=== PATIENT | male | born 1965 | race African-American/Black ===

== ENCOUNTER 2017-02-15 16:06 | Emergency (ER) | payer OTHER ==
--- NOTE | ~2017-02-15 | CR72 ---
[facility]. [facility] A Service of [facility] & [facility] RADIOLOGY TEXT RESULTS PATIENT: LA AC LOCATION: SED : 65 UNIT #: [id number] AGE: [address]: Burt Murray MD SEX: M ORDER DR: [id number] [address] [address] [id number] E MR#: [id number] Acc #: [id number] NAME: LA AC : 1965 SEX: M STUDY DATE/TIME: 02/15/2017 15:57 UNIT: SED ROOM: STUDY DESCRIPTION: CR Chest Single View Portable Attending Physician: Burt Murray M.D. Ordering Physician: Burt Murray M.D. Primary Care Physician: Melvi Holly M.D. MEDICAL IMAGING REPORT This report is preliminary unless electronic signature is present. EXAM Portable chest. INDICATION Chest pain for 3 days, was worse today. COMPARISON No comparison. FINDINGS A portable view of the chest was obtained. The heart size and vascularity are normal, and the lungs are clear, and the bones are normal. IMPRESSION No active disease. Dictated by... Raúl Arango M.D. THIS IS AN ELECTRONICALLY VERIFIED REPORT Raúl Arango M.D. at 02/15/2017 9:54 PM LINDA/caleb TD: 02/15/2017 20:00 JOB #: [id number] MEDICAL IMAGING REPORT Page 1 of 1
--- NOTE | ~2017-02-15 | EKG ---
PATIENT: LA AC UNIT #: [id number] Ventricular Rate: 70 BPM Atrial Rate: 70 BPM P-R Interval: 168 ms QRS Duration: 88 ms Q-T Interval: 360 ms QTC Calculation(Bezet): 388 ms P [place]: 49 degrees Calculated R [place]: 47 degrees Calculated T [place]: 2 degrees Diagnosis Line: Normal sinus rhythm Diagnosis Line: Normal ECG Baseline wander Diagnosis Line: No previous ECGs available Diagnosis Line: Reconfirmed by MARTÍN VILLA MD ([id number]) on Diagnosis Line: 02/19/2017 9:32:25 AM INTERPRETING MD: DAISY HERNANDEZ
--- NOTE | ~2017-02-15 | EKG ---
PATIENT: LA AC UNIT #: [id number] Ventricular Rate: 70 BPM Atrial Rate: 70 BPM P-R Interval: 168 ms QRS Duration: 88 ms Q-T Interval: 360 ms QTC Calculation(Bezet): 388 ms P [place]: 49 degrees Calculated R [place]: 47 degrees Calculated T [place]: 2 degrees Diagnosis Line: Normal sinus rhythm Diagnosis Line: Normal ECG Diagnosis Line: No previous ECGs available Diagnosis Line: Confirmed by MARTÍN VILLA MD ([id number]) on 02/19/2017 Diagnosis Line: 9:32:06 AM INTERPRETING MD: DAISY HERNANDEZ
[~2017-02-15 16:06] MED LIST: FLEXERIL PO; FLEXERIL10 MG PO; HCTZ PO; LOPRESSOR; MEDROL4 MG/DOSE- PO; NO MEDICATIONS; PEN-VEE K PO; VICODIN 5/500 T1 TAB PO; VOLTAREN50 MG PO
[2017-02-15 16:18] LABS: POC - CKMB 1.6 ng/mL (0.0-7.9); POC - TROPONIN <0.05 ng/mL (<=0.05)
[2017-02-15 16:20] LABS: ALBUMIN SERUM 3.9 g/dL (3.5-5.0); BILIRUBIN, DIRECT 0.1 mg/dL (0.0-0.2); BILIRUBIN,INDIRECT 0.2 mg/dL (0.0-0.9); BILIRUBIN,TOTAL 0.3 mg/dL (0.2-2.0); BUN/CREATININE RATIO 13.84; CREATININE SERUM 1.3 mg/dL (0.6-1.4); GLOM FILT RATE Estimated 73.2 mL/min (>60); PARTIAL THROMBOPLASTIN TIME 26.4 SECONDS (25.6-38.1); POTASSIUM 3.9 mmol/L (3.5-5.1); PROTEIN TOTAL SERUM 7.5 g/dL (6.0-8.3)
[2017-02-15 16:40] LABS: MEAN PLATELET VOLUME 8.2 FL (6.5-11.5)
[2017-02-15 17:05] LABS: BASOPHIL# 0.1 X10e3 (0-0.3); BASOPHIL% 0.6 % (0-2.5); EOSINOPHIL# 0.4 X10e3 (0-0.7); EOSINOPHIL% 4.9 % (0.0-7.0); HEMATOCRIT 43.2 % (38.0-50.0); HEMOGLOBIN 13.5 gm/dL (13.0-16.0); LYMPHOCYTE# 2.5 X10e3 (1.0-3.5); LYMPHOCYTE% 27.5 % (17.0-45.0); MEAN CELL VOLUME 74.2 FL (83-96); MEAN CORPUSCULAR HEMOGLOBIN 23.3 PG (28-34); MEAN CORPUSCULAR HGB CONC 31.4 g/dL (30-36); MONOCYTE# 0.4 X10e3 (0-1.0); MONOCYTE% 4.3 % (3.0-12.0); NEUTROPHIL# 5.7 X10e3 (1.5-7.1); NEUTROPHIL% 62.7 % (40-75); PLATELET COUNT 252 X10e3 (140-420); RED BLOOD COUNT 5.81 X10e (3.90-5.60); RED CELL DISTRIBUTION WIDTH 14.4 % (11.0-15.5)
[2017-02-15 17:06] LABS: DIFF IND NO
== END 2017-02-15 16:53 | disposition home or self-care (01) ==
LOC: SED 16:06
PROVIDERS: Emergency Medicine
DX: S46.912A Strain of unspecified muscle, fascia and tendon at shoulder and upper arm level, left arm, initial encounter (principal); R07.89 Other chest pain; F17.200 Nicotine dependence, unspecified, uncomplicated; I10 Essential (primary) hypertension; X50.9XXA Other and unspecified overexertion or strenuous movements or postures, initial encounter
CPT/HCPCS: 36415; 71010; 80048; 80076; 82553; 84484; 85025; 85610; 85730; 93005; 96374; 99284; J2270

== ENCOUNTER 2017-04-11 16:50 | Observation (INO) | payer OTHER ==
--- NOTE | ~2017-04-11 | CR72 ---
[facility] A Service of [facility] & [facility] RADIOLOGY TEXT RESULTS PATIENT: LA AC LOCATION: [facility] 575-01 : [birth year] UNIT #: [id number] AGE: [address]: Chris Murdock MD SEX: M ORDER DR: [id number] [address] [address] [id number] I MR#: [id number] Acc #: [id number] NAME: LA AC : 1965 SEX: M STUDY DATE/TIME: 04/11/2017 19:26 [facility]: 62556 STUDY DESCRIPTION: CR Chest Single View Portable Attending Physician: Chris Murdock M.D. Ordering Physician: Lizy Skaggs M.D. Primary Care Physician: Melvi Holly M.D. MEDICAL IMAGING REPORT This report is preliminary unless electronic signature is present EXAM Portable chest. INDICATIONS Chest pain for 3 days. COMPARISON 02/15/2017 FINDINGS Low-volume inspiration. No definite acute infiltrate. Heart size stable. Visualized osseous structures are unremarkable. IMPRESSION Low-volume inspiration. No active disease. Dictated by... Jose Causey M.D. THIS IS AN ELECTRONICALLY VERIFIED REPORT Jose Causey M.D. at 04/16/2017 1:32 PM ARS/salma TD: 04/12/2017 10:17 JOB #: [id number] MEDICAL IMAGING REPORT Page 1 of 1 COPY
--- NOTE | ~2017-04-11 | TH ---
Unit #: [id number] #: [id number] Patient: LA AC [id number] [address] [address] [id number] I MR#: [id number] NAME: LA AC : 1965 SEX: M STUDY DATE/TIME: 04/16/2017 UNIT: [facility] ROOM: 575 STUDY DESCRIPTION: Stress nuclear study Attending Physician: Chris Murdock M.D. Primary Care Physician: Melvi Holly M.D. CARDIOLOGY REPORT EXAM Stress nuclear study. FINDINGS Result text under stress test. Please see this report for result text. Dictated by... Froylan Oakes/salma TD: 04/16/2017 13:01 JOB #: [id number] CARDIOLOGY REPORT Page 1 of 1 X Chris Murdock MD CARDIOLOGY REPORT
--- NOTE | ~2017-04-11 | HP ---
Unit #: [id number] #: [id number] Patient: LA AC [id number] [address] [address] [id number] I MR#: [id number] NAME: LA AC ROOM: 575 Age: 51 Sex: M Admission Date: 04/11/2017 : 1965 Attending Physician: Chris Murdock M.D. Primary Care Physician: Melvi Holly M.D. HISTORY AND PHYSICAL CHIEF COMPLAINT Chest pain. 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 He is followed with Dr. Melvi Holly as his primary care provider. He endorses that he has a past medical history of hypertension, hyperlipidemia, diabetes, daily alcohol use, chronic knee pain and reformed tobaccoism. The patient endorses that he had been smoking since the age of 15, approximately about a half pack to one pack of cigarettes per day, but did quit three months ago. He also endorses that he has a family history of coronary artery disease and CVA. The patient presented to the emergency department with complaints of left chest pain at rest. He describes that the pain started in his chest and went to his left shoulder and down his left arm. He described the pain as an intermittent squeezing pain that lasted all day. There was no associated diaphoresis or shortness of air. He denies any trauma or heavy lifting. Yesterday at around 4:30 or 5 pm. The patient presented to the emergency room, where he was treated with nitroglycerin. He state that that has helped his pain. His troponin was found to be less than 0.03 and his EKG was unremarkable. The patient has been admitted for further workup. PAST MEDICAL HISTORY 1. Hypertension. 2. Hyperlipidemia. 3. Diabetes. 4. Daily alcohol use. 5. Chronic knee pain. 6. Reformed tobaccoism. PAST SURGICAL HISTORY Right foot surgery at the age of 10. SOCIAL HISTORY The patient states that he quit smoking cigarettes approximately three months ago. He has been smoking since the age of 15 and smoked approximately half to one pack of cigarettes per day. He does endorse daily alcohol use and occasional marijuana use. He is disabled and lives with his . FAMILY HISTORY Unit #: [id number] #: [id number] Patient: LA AC The patient endorses that his mother and father both had coronary artery disease. ALLERGIES Ibuprofen HOME MEDICATIONS 1. Toprol XL 50 mg p.o. daily. 2. Lisinopril 20 mg p.o. daily. 3. Celebrex 200 mg p.o. daily. 4. Norvasc 10 mg p.o. daily. 5. Lipitor 40 mg p.o. daily. REVIEW OF SYSTEMS A 10-point review of systems has been done and is otherwise negative unless indicated in the history of present illness. PHYSICAL EXAMINATION GENERAL: The patient is awake, alert and currently in no acute distress. VITALS: Temperature 98.9, heart rate 54, respiratory rate 12, blood pressure 133/73 and oxygenating 98%. HEENT: Head is atraumatic and normocephalic. Pupils equal, round and reactive to light. Extraocular movements are intact. No drainage from nares. NECK: Supple. Trachea midline. Normal carotid upstrokes. No thyromegaly or lymphadenopathy is appreciated. CHEST: Lungs are diminished bilaterally. No wheezes, rales or rhonchi. HEART: S1 and S2. Regular rate and rhythm. No murmurs, rubs or gallops appreciated. ABDOMEN: Soft, nontender and nondistended. Bowels sounds are positive in all four quadrants. No hepatosplenomegaly is appreciated. SKIN: Appears to be warm, dry and intact without any unusual rashes or lesions. EXTREMITIES: No clubbing, edema or cyanosis. NEUROLOGIC: The patient is alert and oriented times four. He is pleasant and conversant with no focal deficits. Cranial nerves II through XII appear to be intact. DIAGNOSTIC STUDIES LABORATORY: White blood cell count 9.8, hemoglobin 13.2, hematocrit 44.2, platelets 256, sodium 140, potassium 4, chloride 107, CO2 27, BUN 22, creatinine 1.4, glucose 109. Pugll-wj-ybvi troponin was less than 0.05 and initial troponin was less than 0.03. ASSESSMENT 1. Left anterior chest pain with atypical presentation. 2. Hypertension. 3. Hyperlipidemia. 4. Diabetes. 5. Daily alcohol use. 6. Reformed tobaccoism. PLAN At this time, will trend cardiac enzymes, check TSH and lipid panel. Will put the patient on nitroglycerin paste 1 inch b.i.d. and will order a Lexiscan Cardiolite stress test. Naproxen 375 mg has been ordered daily for 7 days. Unit #: [id number] #: [id number] Patient: LA AC Again, if the patient's stress test is negative, likely he will be discharged. Dictated by Maame Lemons TD: 04/12/2017 12:26 JOB #: [id number] HISTORY AND PHYSICAL Page 1 of 1 X Mindy Ramesh APRN X HISTORY AND PHYSICAL
--- NOTE | ~2017-04-11 | DS ---
Unit #: [id number] #: [id number] Patient: LA AC [id number] [address] [address] [id number] I MR#: [id number] NAME: LA AC ROOM: 575 Age: 51 Sex: M Admission Date: 04/11/2017 : 1965 Discharge Date: 04/12/2017 Attending Physician: Chris Murdock M.D. Primary Care Physician: Melvi Holly M.D. DISCHARGE SUMMARY DISCHARGE DIAGNOSES 1. Left anterior chest pain, atypical. 2. Hypertension. 3. Hyperlipidemia. 4. Diabetes. 5. Reformed tobaccoism. 6. Positive family history of coronary artery disease and cerebrovascular accident. 7. Daily alcohol use. HOSPITAL COURSE The patient is a 51-year-old -[place] male who presented to the hospital with complaints of left anterior chest pain. He described the pain that started in his chest and went down to his left shoulder and down to his arm. He described the pain as intermittent, squeezing that lasted all day. There was no associated diaphoresis or shortness of breath. He denied any trauma to the area. He presented to the emergency department where he was treated with nitroglycerin. He stated that helped his pain. His troponins were negative. His EKG was unremarkable. Patient did undergo a Lexiscan Cardiolite stress test which was normal. I have discussed this case with Dr. Kuhn and he is agreeable for discharge. DISCHARGE FOLLOW UP INSTRUCTIONS 1. The patient will be discharged home. 2. The patient will follow up with primary care provider in one week. 3. Healthy heart diet. 4. Activity as tolerated. 5. The patient is to seek medical attention or return to the ER if signs or symptoms worsen. I have discussed discharge instructions with the patient. DISCHARGE MEDICATIONS 1. Amlodipine 10 mg p.o. daily. 2. Toprol XL 50 mg p.o. daily. 3. Lipitor 40 mg p.o. daily. 4. Lisinopril 20 mg p.o. daily. 5. Naproxen 375 mg p.o. x7 days. 6. Celebrex 200 mg p.o. daily. 7. Pepcid 20 mg p.o. daily. Unit #: [id number] #: [id number] Patient: LA AC Dictated by... Mindy Ramesh A.P.R.N. for Chad Kuhn M.D. AM/gabriele TD: 04/12/2017 14:17 JOB #: [id number] DISCHARGE SUMMARY Page 1 of 1 X Mindy Ramesh APRN X DISCHARGE SUMMARY
--- NOTE | ~2017-04-11 | ST ---
Unit #: [id number] #: [id number] Patient: LA AC [id number] [address] [address] [id number] I MR#: [id number] NAME: LA AC : 1965 SEX: M STUDY DATE/TIME: 04/16/2017 UNIT: [facility] ROOM: 575 STUDY DESCRIPTION: Stress test Attending Physician: Chris Murdock M.D. Primary Care Physician: Melvi Holly M.D. CARDIOLOGY REPORT EXAM Stress nuclear and ECG combined. INDICATIONS Dyspnea and chest pain. SUMMARY Patient received Lexiscan intravenously while at rest as well as technetium 99 Cardiolite, 9.34 and 25.9 mCi at rest and stress, respectively. Appropriate views were obtained. FINDINGS The heart rate increased from 52 up to 72 beats per minute. Blood pressure decreased from 147/101 to 137/95. The rest and stress ECG showed no diagnostic ST shifts, no significant dysrhythmias and no heart block. Perfusion images demonstrated large LV with diaphragmatic attenuation artifact, but otherwise normal perfusion with stress. There is intestinal artifact present at rest and stress. There is apical thinning present at rest. End-diastolic volume is 144 mL with quantitative ejection fraction 46%. Summed stress score is 5. Summed difference score is 5. Changes involve primarily the basal anterior wall. Planar images demonstrate mild patient motion both at rest and stress. There is chest wall attenuation artifact, but otherwise LV size is enlarged. RV size appears mildly enlarged and there is no increased lung uptake. IMPRESSION 1. Stress nuclear study shows no ischemia or infarction. 2. Mildly reduced ejection fraction with enlarged LV as noted above. 3. Lexiscan stress ECG is negative for ischemia. Dictated by... Chris Murdock M.D. KESHAV/salma TD: 04/16/2017 12:52 JOB #: [id number] Unit #: [id number] #: [id number] Patient: LA AC CARDIOLOGY REPORT Page 1 of 1 X Chris Murdock MD CARDIOLOGY REPORT
--- NOTE | ~2017-04-11 | EKG ---
PATIENT: LA AC UNIT #: [id number] Ventricular Rate: 57 BPM Atrial Rate: 57 BPM P-R Interval: 142 ms QRS Duration: 78 ms Q-T Interval: 384 ms QTC Calculation(Bezet): 373 ms P [place]: 28 degrees Calculated R [place]: 17 degrees Calculated T [place]: 10 degrees Diagnosis Line: Sinus bradycardia Diagnosis Line: Otherwise normal ECG Diagnosis Line: When compared with ECG of 15-FEB-2017 15:43, Diagnosis Line: No significant change was found Diagnosis Line: Confirmed by ALFONSO LINN MD ([id number]) on 04/16/2017 Diagnosis Line: 2:37:53 PM INTERPRETING MD: KAVEH HERNANDEZ
--- NOTE | ~2017-04-11 | ST ---
Unit #: [id number] #: [id number] Patient: LA AC [id number] [address] [address] [id number] I MR#: [id number] NAME: LA AC : 1965 SEX: M STUDY DATE/TIME: 04/12/2017 UNIT: [facility] ROOM: 575 STUDY DESCRIPTION: Attending Physician: Chris Murdock M.D. Primary Care Physician: Melvi Holly M.D. CARDIOLOGY REPORT EXAM EKG portion of Lexiscan Cardiolite stress test. REASON FOR EXAMINATION Chest pain. FINDINGS Baseline EKG shows sinus bradycardia with a rate of 53 beats per minute. PROCEDURE A total of 0.4 mg of Lexiscan was injected per protocol followed by Cardiolite. The patient's symptoms were abdominal pain. There were no ST-T wave changes or arrhythmias. The test was stopped due to protocol completion. IMPRESSION 1. Abdominal pain resolved in recovery. 2. No arrhythmias. 3. Please correlate with Cardiolite imaging. Dictated by... Mindy Ramesh A.P.R.N. for Chad Kuhn M.D. AM/gabriele TD: 04/12/2017 13:20 JOB #: [id number] CARDIOLOGY REPORT Page 1 of 1 X Mindy Ramesh APRN CARDIOLOGY REPORT
[2017-04-11 18:58] LABS: POC - CKMB 1.1 ng/mL (0.0-7.9); POC - TROPONIN <0.05 ng/mL (<=0.05)
[2017-04-11 19:04] LABS: BASOPHIL# 0.1 X10e3 (0-0.3); BASOPHIL% 0.5 % (0-2.5); EOSINOPHIL# 0.5 X10e3 (0-0.7); HEMATOCRIT 44.2 % (38.0-50.0); HEMOGLOBIN 13.2 gm/dL (13.0-16.0); LYMPHOCYTE% 30.9 % (17.0-45.0); MEAN CORPUSCULAR HGB CONC 29.9 g/dL (30-36); MEAN PLATELET VOLUME 8.4 FL (6.5-11.5); MONOCYTE# 0.4 X10e3 (0-1.0); MONOCYTE% 4.4 % (3.0-12.0); NEUTROPHIL# 5.8 X10e3 (1.5-7.1); NEUTROPHIL% 59.2 % (40-75); PLATELET COUNT 256 X10e3 (140-420); RED BLOOD COUNT 5.74 X10e (3.90-5.60); RED CELL DISTRIBUTION WIDTH 14.9 % (11.0-15.5); WHITE BLOOD COUNT 9.8 X10e3 (4.0-10.5)
[2017-04-11 19:06] LABS: DIFF IND NO
[2017-04-11 19:09] LABS: ALBUMIN SERUM 4.1 g/dL (3.5-5.0); BILIRUBIN, DIRECT 0.1 mg/dL (0.0-0.2); BILIRUBIN,INDIRECT 0.7 mg/dL (0.0-0.9); BILIRUBIN,TOTAL 0.8 mg/dL (0.2-2.0); BUN/CREATININE RATIO 15.71; CREATININE SERUM 1.4 mg/dL (0.6-1.4); PROTEIN TOTAL SERUM 7.5 g/dL (6.0-8.3)
[2017-04-11] MEDS ORDERED: TOPROL XL50 MG PO (19:23)
[2017-04-11] MEDS ORDERED: LISINOPRIL20 MG PO (19:24)
[2017-04-11] MEDS ORDERED: CELECOXIB200 MG PO (19:24)
[2017-04-11] MEDS ORDERED: LIPITOR40 MG PO (19:25)
[2017-04-11] MEDS ORDERED: NORVASC10 MG PO (19:25)
[2017-04-11 21:22] LABS: POC - CKMB 1.1 ng/mL (0.0-7.9); POC - TROPONIN <0.05 ng/mL (<=0.05)
[2017-04-12 11:05] LABS: CHOLESTEROL 141 mg/dL (0-200); HDL CHOLESTEROL 41 mg/dL (29-75); LDL CHOLESTEROL 70 mg/dL (-130); LDL/HDL RATIO 2 RATIO (0-4); TRIGLYCERIDES 149 mg/dL (10-160)
[2017-04-12 13:34] LABS: %MB 1.6 % (0.0-4.0); MB 2.1 ng/ml
[2017-04-12] MEDS ORDERED: NAPROXEN250 MG PO (14:09)
[2017-04-12] MEDS ORDERED: PEPCID AC20 M2 PO (14:11)
== END 2017-04-12 15:29 | disposition home or self-care (01) ==
LOC: CED 16:50 → CEDOF 20:30 → C5C 20:30 → CED 20:30 → CEDOF 20:40 → C5C 04-12 10:23
PROVIDERS: Internal Medicine Cardiovascular Disease
DX: R07.89 Other chest pain (principal); I10 Essential (primary) hypertension; E11.9 Type 2 diabetes mellitus without complications; E78.5 Hyperlipidemia, unspecified; Z87.891 Personal history of nicotine dependence; Z82.49 Family history of ischemic heart disease and other diseases of the circulatory system; Z82.3 Family history of stroke; M25.569 Pain in unspecified knee; F10.99 Alcohol use, unspecified with unspecified alcohol-induced disorder; F12.90 Cannabis use, unspecified, uncomplicated; Z79.899 Other long term (current) drug therapy; Z88.8 Allergy status to other drugs, medicaments and biological substances; Z79.1 Long term (current) use of non-steroidal anti-inflammatories (NSAID)
CPT/HCPCS: 36415; 71010; 78452; 80048; 80061; 80076; 82550; 82553; 83036; 84443; 84484; 85025; 93005; 93017; 99285; A9500; G0378; J2785